=== PATIENT | male | born 1970 | race Caucasian/White ===

== ENCOUNTER 2017-06-10 08:41 | Emergency (ER) | payer BC, OTHER ==
[2017-06-10] MEDS ORDERED: Ketorolac 60 MG/2 ML SDV IM ONE (09:09)
--- NOTE | 2017-06-10 09:11 | EDM.PDOC ---
ED HPI GENERAL MEDICAL PROBLEM - General Chief Complaint: Upper Extremity Injury/Pain Stated Complaint: LEFT SIDE MIDDLE FINGER REDNES AND SWOLLEN Time Seen by Provider: 06/10/17 08:47 Source of Information: Reports: Patient History Limitations: Reports: No Limitations - History of Present Illness INITIAL COMMENTS - FREE TEXT/NARRATIVE: HISTORY AND PHYSICAL: History of present illness: [46-year-old male 3 weeks status post left long finger injury at work. Patient states he jammed it violently while loading a trailer and injured it. It was painful and swollen since. Sometime after that he reinjured it by twisting it while doing strenuous activity. It has stayed swollen and painful with range of motion swelling has not gone down this finger is still very sore so patient came to the emergency department for evaluation. He never had a wound or abrasion. Patient does have a history gout and he thought he might have gotten gout in the finger to account for his continued pain however was slightly red over the knuckle that he injured finger has never gotten hot the remainder of his fingers and hand are not painful or swollen in any way his range of motion is limited by swelling and pain] Review of systems: As per history of present illness and below otherwise all systems reviewed and negative. Past medical history: As per history of present illness and as reviewed below otherwise noncontributory. Surgical history: As per history of present illness and as reviewed below otherwise noncontributory. Social history: No reported history of drug or alcohol abuse. Family history: As per history of present illness and as reviewed below otherwise noncontributory. Physical exam: Well-appearing patient in no acute distress benign exam except plus plus swelling left long finger. No skin lesion. No warmth crepitus or fluctuance. Patient does not have tenderness over the flexor tendon sheath. Neurovascularly intact distally remainder of hand and fingers nontender HEENT: Atraumatic, normocephalic, pupils reactive, negative for conjunctival pallor or scleral icterus, mucous membranes moist, throat clear, neck supple, nontender, trachea midline. Lungs: Clear to auscultation, breath sounds equal bilaterally, chest nontender. Heart: S1S2, regular, negative for clicks, rubs, or JVD. Abdomen: Soft, nondistended, nontender. Negative for masses or hepatosplenomegaly. Negative for costovertebral tenderness. Pelvis: Stable nontender. Genitourinary: Deferred. Rectal: Deferred. Extremities: As above otherwise Atraumatic, negative for cords or calf pain. Neurovascular unremarkable. Neuro: Awake, alert, oriented. Cranial nerves grossly unremarkable. Cerebellum unremarkable. Motor and sensory unremarkable throughout. Exam nonfocal. 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 Palpation was concerned about the possibility of gout given that he does have that disease, pain and swelling has been there gradually worsening since his injury and subsequent reinjury. Analgesia given/Toradol IM. X-ray pending] Patient's x-ray has bony changes at and around the joint consistent with inflammatory arthropathy suggestive of gout versus septic joint. ESR CRP and white blood cell count all unremarkable in the setting of an afebrile patient with no infectious prodrome or systemic symptoms. Uric acid elevated at 7.7. Patient's renal function appropriate. Presentation appears consistent with posttraumatic exacerbation of gouty arthritis. He is being hydrated, steroids administered IV, colchicine given by mouth, patient's pain is well-controlled and he feels improved with decreased swelling on reevaluation. No further workup or treatment indicated. Will prescribe colchicine and steroids. Patient has [place] at home and is aware to take an NSAID [id number]. Patient agrees with outpatient follow-up and strict return precautions given. Definitive disposition and diagnosis as appropriate pending reevaluation and review of above. Left 3-Middle finger Pain Score (Numeric/FACES): 8 - Related Data Allergies Allergy/AdvReac Type Severity Reaction Status Date / Time No Known Allergies Allergy Verified 06/10/17 09:01 Home Meds: Home Meds Colchicine 0.6 mg PO ASDIRECTED PRN #16 capsule 06/10/17 [Rx] Prednisone [IMW: predniSONE] 60 mg PO WITHBREAKFAST #5 tab 06/10/17 [Rx] Review of Systems - Review of Systems Review Of Systems: See Below (History of present illness) ED EXAM, GENERAL - Physical Exam Exam: See Below (History of present illness) Course - Vital Signs Last Recorded V/S: Last Vital Signs Temp 36.6 C 06/10/17 08:58 Pulse 78 06/10/17 08:58 Resp 18 06/10/17 08:58 BP 149/90 H 06/10/17 08:58 Pulse Ox 97 06/10/17 08:58 - Orders/Labs/Meds Labs: Laboratory Tests 06/10/17 06/10/17 06/10/17 Range/Units 09:54 09:54 09:54 WBC 10.15 (4.0-11.0) K/uL RBC 4.94 (4.50-5.90) M/uL Hgb 14.8 (13.0-17.0) g/dL Hct 43.1 (38.0-50.0) % MCV 87.2 (80.0-98.0) fL MCH 30.0 (27.0-32.0) pg MCHC 34.3 (31.0-37.0) g/dL RDW Std Deviation 42.4 (28.0-62.0) fl RDW Coeff of Nahum 13 (11.0-15.0) % Plt Count 296 (150-400) K/uL MPV 10.70 (7.40-12.00) fL Neut % (Auto) 59.6 (48.0-80.0) % Lymph % (Auto) 29.4 (16.0-40.0) % [place] % (Auto) 8.6 (0.0-15.0) % Eos % (Auto) 1.9 (0.0-7.0) % Baso % (Auto) 0.5 (0.0-1.5) % Neut # (Auto) 6.1 H (1.4-5.7) K/uL Lymph # (Auto) 3.0 H (0.6-2.4) K/uL [place] # (Auto) 0.9 H (0.0-0.8) K/uL Eos # (Auto) 0.2 (0.0-0.7) K/uL Baso # (Auto) 0.1 (0.0-0.1) K/uL Nucleated RBC % 0.0 /100WBC Nucleated RBCs # 0 K/uL ESR 7 (0-14) mm/hr Sodium (136-146) mmol/L Potassium (3.5-5.1) mmol/L Chloride (98-110) mmol/L Carbon Dioxide (21-31) mmol/L BUN (6.0-23.0) mg/dL Creatinine (0.6-1.5) mg/dL Est Cr Clr Drug Dosing mL/min Estimated GFR (MDRD) ml/min Glucose (60-110) mg/dL Uric Acid 7.7 H (2.1-7.4) mg/dL Calcium (8.8-10.8) mg/dL C-Reactive Protein 0.41 (0.0-0.5) mg/dL 06/10/17 Range/Units 09:54 WBC (4.0-11.0) K/uL RBC (4.50-5.90) M/uL Hgb (13.0-17.0) g/dL Hct (38.0-50.0) % MCV (80.0-98.0) fL MCH (27.0-32.0) pg MCHC (31.0-37.0) g/dL RDW Std Deviation (28.0-62.0) fl RDW Coeff of Nahum (11.0-15.0) % Plt Count (150-400) K/uL MPV (7.40-12.00) fL Neut % (Auto) (48.0-80.0) % Lymph % (Auto) (16.0-40.0) % [place] % (Auto) (0.0-15.0) % Eos % (Auto) (0.0-7.0) % Baso % (Auto) (0.0-1.5) % Neut # (Auto) (1.4-5.7) K/uL Lymph # (Auto) (0.6-2.4) K/uL [place] # (Auto) (0.0-0.8) K/uL Eos # (Auto) (0.0-0.7) K/uL Baso # (Auto) (0.0-0.1) K/uL Nucleated RBC % /100WBC Nucleated RBCs # K/uL ESR (0-14) mm/hr Sodium 141 (136-146) mmol/L Potassium 3.6 (3.5-5.1) mmol/L Chloride 105 (98-110) mmol/L Carbon Dioxide 26 (21-31) mmol/L BUN 17 (6.0-23.0) mg/dL Creatinine 0.8 (0.6-1.5) mg/dL Est Cr Clr Drug Dosing 104.12 mL/min Estimated GFR (MDRD) > 60.0 ml/min Glucose 114 H (60-110) mg/dL Uric Acid (2.1-7.4) mg/dL Calcium 9.3 (8.8-10.8) mg/dL C-Reactive Protein (0.0-0.5) mg/dL Meds: Medications Discontinued Medications Generic Name Dose Route Start Last Admin Trade Name Groverq PRN Reason Stop Dose Admin Colchicine 0.6 mg 06/10/17 10:08 06/10/17 10:24 Colcrys PO 06/10/17 10:09 0.6 mg ONETIME ONE Administration Sodium Chloride 1,000 mls @ 999 mls/hr 06/10/17 10:14 06/10/17 10:24 Normal Saline IV 06/10/17 11:14 999 mls/hr STAT ONE Administration Sodium Chloride 1,000 mls @ 999 mls/hr 06/10/17 10:14 06/10/17 11:10 Normal Saline IV 06/10/17 11:14 999 mls/hr STAT ONE Administration Ketorolac Tromethamine 60 mg 06/10/17 09:09 06/10/17 09:20 Toradol IM 06/10/17 09:10 60 mg ONETIME ONE Administration Methylprednisolone Sodium Succinate 125 mg 06/10/17 10:09 06/10/17 10:24 Solu-Medrol IVPUSH 06/10/17 10:10 125 mg ONETIME ONE Administration Departure - Departure Time of Disposition: 11:44 Disposition: Home, Self-Care 01 Condition: Good Clinical Impression: Pain in finger of left hand, Gout attack, Hypertension - Discharge Information Referrals: PCP,None [Primary Care Provider] - Forms: ED Department Discharge Additional Instructions: You are suffering from an episode of gout which appears to have been precipitated by a sprain of your left long finger. Rest apply ice and elevate above your heart when ever possible. Use colchicine as needed as he previously had been prescribed. Take 800 mg of ibuprofen every 6 hours and use your [place] as previously prescribed as needed for breakthrough pain. Finish steroids as prescribed. Follow-up with your DrRuba for reevaluation, further treatment and referral as needed. Return immediately for new severe or worsening symptoms
[2017-06-10] MEDS ORDERED: Colchicine 0.6 MG Tab PO ONE (10:08)
[2017-06-10] MEDS ORDERED: methylPREDNISolone Sodium Succinate 125 MG/2 ML SDV IVPUSH ONE (10:09)
[2017-06-10] MEDS ORDERED: Sodium Chloride 0.9% 1,000 ML IV ONE ×2 (10:14)
[2017-06-10 10:34] LABS: CHLORIDE,CL 105 mmol/L (98-110); SODIUM,NA 141 mmol/L (136-146)
--- NOTE | 2017-06-10 11:06 | CR ---
EXAM DATE: 06/10/17 PATIENT'S AGE: 46 Patient: JANET GARCIA Facility: [place], [place] Site . Site : 1970 Study: XRay Extremity Left Finger [id number]/29/2017 9:26:44 AM Ordering Physician: Garfield Arciniega Final Report: INDICATION: Pain and swelling. TECHNIQUE: Three views the left 3rd finger. COMPARISON: None. IMPRESSION: There is significant soft tissue swelling of the 3rd finger, particular about the PIP joint. The joint space appears mildly narrowed, with changes of periarticular osteopenia. There are subtle marginal erosive changes seen on both sides of the joint. No appreciable articular surface destruction. Findings likely represent an acute inflammatory arthropathy (synovial inflammatory arthritis). Although consider less likely, recommend clinical correlation to exclude an infectious etiology/septic arthritis. Dictated by Raymundo West MD @ 06/10/2017 9:39:35 AM Dictated by: Raymundo West MD @ 06/10/2017 09:39:52 (Electronic Signature) Report Signed by Proxy. OMEGA
[2017-06-10 12:49] VITALS: BP 139/95
== END 2017-06-10 12:20 | disposition home or self-care (01) ==
LOC: MW.ED 08:41
DX: M10.9 Gout, unspecified (principal); S69.92XA Unspecified injury of left wrist, hand and finger(s), initial encounter; I10 Essential (primary) hypertension; W23.1XXA Caught, crushed, jammed, or pinched between stationary objects, initial encounter; Y99.0 Civilian activity done for income or pay
CPT/HCPCS: 36415; 73140; 80048; 84550; 85025; 85652; 86140; 96361; 96372; 96374; 99284; A9270; J1885; J2930; J7040; 99282